=== PATIENT | female | born 1995 | race American Indian/Alaskan Native ===

== ENCOUNTER 2017-12-26 12:14 | Emergency (ER) | payer SELFPAY ==
[2017-12-26 13:12] VITALS: BP 128/83
--- NOTE | 2017-12-26 14:05 | Emergency Department Report ---
Chief Complaint: Urogenital-Female Stated Complaint: ABD CRAMPS Time Seen by Provider: 12/26/17 14:00 - HPI History of Present Illness: Ms. Magdaleno presents for request for STD check. She has vaginal discharge and pelvic cramping. - Exam Vital Signs: Vital Signs 12/26/17 13:10 Temperature 99.1 F Pulse Rate 78 Respiratory 16 Rate Blood Pressure 128/83 O2 Sat by Pulse 100 Oximetry MSE screening note: Focused history and physical exam performed. Due to findings the following was ordered: ED Medical Decision Making - Medical Decision Making Ms. Magdaleno has been referred to outpatient clinics for further evaluation. She is not currently . She does not have a life or limb threatening medical emergency which requires further emergent treatment or evaluation. ED Disposition for MSE Clinical Impression: Vaginal discharge Disposition: DC-01 TO HOME OR SELFCARE Is pt being admited?: No Does the pt Need Aspirin: No Condition: Stable Instructions: Sexually Transmitted Diseases (ED), Safe Sex (ED) Referrals: [facility] [Outside] - 3-5 Days [facility] [Outside] - 3-5 Days Time of Disposition: 14:04
== END 2017-12-26 14:13 | disposition home or self-care (01) ==
LOC: ED 12:14
DX: N89.8 Other specified noninflammatory disorders of vagina (principal); R10.2 Pelvic and perineal pain
CPT/HCPCS: 99282

== ENCOUNTER 2018-08-13 15:53 | Emergency (ER) | payer SELFPAY ==
[2018-08-13] MEDS ORDERED: ULTRAM PO ONE (20:08)
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
[2018-08-13 21:11] VITALS: BP 108/64
== END 2018-08-13 21:11 | disposition home or self-care (01) ==
LOC: ED 15:53
DX: S39.012A Strain of muscle, fascia and tendon of lower back, initial encounter (principal); V87.7XXA Person injured in collision between other specified motor vehicles (traffic), initial encounter; Y93.89 Activity, other specified; Y92.488 Other paved roadways as the place of occurrence of the external cause; Y99.8 Other external cause status
CPT/HCPCS: 99282